=== PATIENT | female | born 2000 | race Hispanic/Latino ===

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

== ENCOUNTER 2018-08-28 21:16 | Emergency (ER) | payer OTHER ==
[2018-08-28 21:52] LABS: BHCG - Serum Negative (NEGATIVE); Pregs Control Background? CLEAR/WHITE (CLR/WHITE); Pregs Control Bar Appear? YES (CONTROL BAR)
[2018-08-29] MEDS ORDERED: Metoclopramide HCl 10 MG/2 ML VIAL ONE (00:08)
[2018-08-29] MEDS ORDERED: diphenhydrAMINE 50 MG/ML VIAL ONE (00:10)
[2018-08-29 00:12] LABS: #Eosinphils 0.1 thou/uL (0.0-0.7); #Lymphocytes 1.9 thou/uL (1.20-3.40); #Monocytes 0.3 thou/uL (0.11-0.59); #Neutrophils 2.4 thou/uL (1.40-6.50); %Basophils 0.8 % (0.0-1.0); %Eosinophils 1.4 % (0.0-10.0); %Lymphocytes 40.8 % (28.0-48.0); %Monocytes 6.2 % (0.0-4.0); %Neutrophils 50.7 % (31.0-61.0); Hemoglobin 13.5 g/dL (12.0-16.0); Mean Corpuscular HGB CONC 33.3 g/dL (32.0-36.0); Mean Corpuscular Hemoglobin 29.3 pg (25.0-35.0); Mean Corpuscular Volume 87.9 fL (78.0-98.0); Mean Platelet Volume 8.9 fL (7.4-10.4); Platelet Count 229 thou/uL (130-400); RBC Distribution Width 13.4 % (11.5-14.5); Red Blood Cell (RBC) Count 4.61 mill/uL (4.00-5.20); White Blood Cell (WBC) Count 4.7 thou/uL (4.8-10.8)
[2018-08-29] MEDS ORDERED: Ketorolac Tromethamine 30 MG/ML VIAL ONE (00:59)
== END 2018-08-29 01:15 | disposition home or self-care (01) ==
LOC: ERS 21:16
DX: G44.209 Tension-type headache, unspecified, not intractable (principal); N94.6 Dysmenorrhea, unspecified
CPT/HCPCS: 36415; 84702; 84703; 85025; 87480; 87510; 87660; 96365; 96375; J1200; J1885; J2765